=== PATIENT | female | born 1965 | race Caucasian/White ===

== ENCOUNTER → 2018-07-26 06:01 | Outpatient (CLI) | payer MEDICARE, SELFPAY ==
--- NOTE | 2018-07-26 06:03 | US_ITS ---
US abdomen limited right upper quadrant ultrasound. HISTORY:Right upper quadrant pain which radiates to the back ORDERING PHYSICIAN: Long Templeton MD PATIENT AGE: 52 years Comparison: CT abdomen and pelvis pelvis June 24, 2018 Procedure Sagittal, transverse and decubitus imaging of the gallbladder was performed. Findings GALLBLADDER - minimal sludge in gallbladder. No stones are evident. Borderline gallbladder wall thickening. Common duct is normal in diameter. The 2-2 0.5 mm at hilum of liver. Liver: No focal lesion only Question some subtle early fatty changes throughout. Portal vein with normal direction flow and caliber Pancreas: Unremarkable fair visualization of head, body, and medial tail of pancreas. Right kidney: Unremarkable appearing. No hydronephrosis. Normal size measuring 10.4 seem in length IMPRESSION: Gallbladder. Trace sludge. No gallstones. Borderline gallbladder wall thickening. Common duct normal. Liver. No focal lesions. Question some subtle early fatty changes throughout.
--- NOTE | 2018-07-26 06:03 | NM_ITS ---
History and Indications: Hyperlipidemia, tobacco use, family history, chest pain, shortness of breath, palpitations and fatigue Procedure: Patient received a 0.4 mg of intravenous Lexiscan, resting heart rate was 72 bpm resting blood pressure 145/79, with Lexiscan maximum heart rate achieved was 1 20 bpm which is less than 85% of the maximum predicted heart rate and a blood pressure was 111/49. With Lexiscan patient complained of chest tightness Electrocardiogram: Resting electrocardiogram showed sinus rhythm, with Lexiscan there is less than 1.[address] segment depression noted from the baseline EKG. The EKG portion of the Lexiscan Myoview is nondiagnostic. Cardiac stress and resting SPECT images: Cardiac stress and resting SPECT images were obtained using technetium 99 Myoview 29.6 mCi stress and 10.3 mCi at rest. Gated SPECT further analysis of segmental wall motion and calculation of the ejection fraction also done. Cardiac stress and rest SPECT images show a mild fixed defect in the anterior wall with normal contractility gated SPECT is likely to soft tissue attenuation, no reversible ischemia seen. Computer derived ejection fraction is over 65% with no regional wall motion abnormality, right ventricle is normal size and contractility. Conclusion: 1. The EKG portion of the Lexiscan Myoview is nondiagnostic. 2. No scintigraphic evidence of reversible ischemia seen, computer derived ejection fraction is over 65% with no regional wall motion abnormality, right ventricle is normal size and contractility. 3. Normal Lexiscan Myoview study.
--- NOTE | 2018-07-26 09:19 | HMH.ITSHM ---
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 [] omeprazole pravastatin kenofibibrate tizanidine lorazepam tramadol
== END ==
PROVIDERS: PCP Emergency Medicine; Visit Provider Emergency Medicine
DX: R10.11 Right upper quadrant pain (principal); R07.9 Chest pain, unspecified
CPT/HCPCS: 76705; 78452; 93017; 93306; A9502

== ENCOUNTER → 2018-08-07 09:52 | Outpatient (CLI) | payer MEDICARE, SELFPAY ==
--- NOTE | 2018-08-07 09:53 | NM_ITS ---
NM hepatobiliary w pharm HISTORY: Right upper quadrant pain, gallbladder sludge ITS.REASON: abdominal pain, gallbladder sludge ORDERING PHYSICIAN: HEIDI Iniguez PATIENT AGE: 52 years COMPARISON: None DOSE: 8.76 [facility] tc CHOLETEC INJ INTO RT ANT Fatty meal with ensure FINDINGS: Homogeneous activity is present within the hepatic parenchyma. Activity is present in the gallbladder by 30 minutes. Activity is present in the small bowel by 15 minutes. The gallbladder ejection fraction is calculated to be 66% The patient did not report pain or other symptoms during the fatty meal. IMPRESSION: Unremarkable hepatobiliary scan and gallbladder ejection fraction. No evidence of common or cystic duct obstruction with normal gallbladder ejection fraction
== END ==
PROVIDERS: PCP Physician Assistant; Visit Provider Physician Assistant
DX: K82.8 Other specified diseases of gallbladder (principal); R10.9 Unspecified abdominal pain
CPT/HCPCS: 78227; A9537